=== PATIENT | female | born 1985 | race Caucasian/White ===

== ENCOUNTER → 2018-01-10 | Outpatient (CLI) | payer OTHER ==
--- NOTE | 2018-01-10 11:17 | RAD ---
Right upper quadrant abdominal ultrasound, 01/10/2018: History: Epigastric pain The gallbladder is within normal limits in size. There is no sonographic evidence of cholelithiasis. The gallbladder pickett are not thickened. No bile duct dilatation is seen. The visualized portions of the liver, pancreas and right kidney are unremarkable. IMPRESSION: No significant abnormality is detected.
--- NOTE | 2018-01-10 11:56 | RAD ---
Radionuclide hepatobiliary scan with gallbladder ejection fraction, 01/10/2018: History: Abdominal pain Following IV injection of 5.5 mCi of technetium 99m Choletec there was prompt uptake of the radionuclide from the blood stream by the liver. Activity is present in the bile ducts and gallbladder at 10 minutes. Initial imaging over the first hour showed increasing activity in the gallbladder without extension into the small bowel. Due to a national shortage of back, the gallbladder ejection fraction portion of the study was performed utilizing 8 ounces of Boost oral supplement. The gallbladder ejection fraction is calculated at 67%. Abundant small bowel activity develops on these delayed images. IMPRESSION: 1. Normal radionuclide hepatobiliary scan. 2. The gallbladder ejection fraction is 67%.
== END | disposition home or self-care (01) ==
LOC: US 07:56
PROVIDERS: ATTEND Internal Medicine Gastroenterology
DX: R10.13 Epigastric pain (principal)
CPT/HCPCS: 76705; 78226; 96374; 96375; A9537